=== PATIENT | male | born 2000 | race African-American/Black ===

== ENCOUNTER 2021-10-23 12:19 | Emergency (ER) | payer OTHER ==
[~2021-10-23] VITALS: Ht 175.3 cm; Wt 68.2 kg
[2021-10-23 12:34] VITALS: BP 133/75
[2021-10-23 13:28] VITALS: BP 133/75
== END 2021-10-23 14:14 | disposition home or self-care (01) | DRG 914 ==
LOC: ED 12:19
PROC: 3E1B78Z Irrigation of Ear using Irrigating Substance, Via Natural or Artificial Opening (ICD-10-PCS; principal; 2021-10-23)
DX: S09.90XA Unspecified injury of head, initial encounter (principal); M79.631 Pain in right forearm; H61.21 Impacted cerumen, right ear; V43.52XA Car driver injured in collision with other type car in traffic accident, initial encounter

== ENCOUNTER 2021-10-25 14:39 | Emergency (ER) | payer OTHER ==
[~2021-10-25] VITALS: Ht 175.3 cm; Wt 68.2 kg
[2021-10-25 15:15] VITALS: BP 133/85
[2021-10-25 15:30] VITALS: BP 118/72
[2021-10-25 16:07] LABS: HEMOGLOBIN 14.8 g/dl (14.0-18.0); IMMATURE GRANULOCYTES 0.2 % (0.0-5.0); MEAN CELL VOLUME 88.1 fL CALC (80.0-100.0); MEAN CORPUSCULAR HGB CONC 35.2 g/dL CAL (32.0-36.0); NEUT# 2.85 thou/uL (1.82-7.42); RED BLOOD COUNT 4.77 mill/uL (4.70-6.10); RED CELL DISTRI WIDTH 13.1 % (11.5-15.5)
[2021-10-25 16:22] LABS: ALBUMIN 4.6 g/dL (3.2-5.0); ALKALINE PHOSPHATASE 50 u/l (38-126); ANION GAP 11 (6-22 (CALC)); BILIRUBIN, TOTAL 0.9 mg/dL (0.0-1.4); BUN 11 mg/dL (9-20); BUN/CREATININE RATIO 14 (12-20 (CALC)); CHLORIDE 105 mmol/l (95-108); CREATININE 0.8 mg/dL (0.7-1.3); GFR FOR AFR.AMER. > 60 ML/MIN (>=60 (CALC)); GFR OTHER RACES > 60 ML/MIN (>=60 (CALC)); LIPASE 57 u/l (23-300); POTASSIUM 3.9 mmol/l (3.5-5.1); SGOT/AST 24 u/l (17-59); SODIUM 140 mmol/l (137-146); TOTAL PROTEIN 7.1 g/dL (6.3-8.2)
[2021-10-25 16:24] LABS: CARBON DIOXIDE 28 mmol/l (22-30)
[2021-10-25 17:05] VITALS: BP 118/72
== END 2021-10-25 17:11 | disposition home or self-care (01) | DRG 556 ==
LOC: ED 14:39
PROVIDERS: Family Medicine
DX: M62.838 Other muscle spasm (principal)

== ENCOUNTER 2022-01-03 11:14 | Emergency (ER) | payer OTHER ==
[~2022-01-03] VITALS: Ht 175.3 cm; Wt 68.1 kg
[2022-01-03 12:01] VITALS: BP 120/88
[2022-01-03 12:22] LABS: URINE BILIRUBIN - DIPSTICK NEGATIVE (NEGATIVE); URINE BLOOD DIPSTICK LARGE (NEGATIVE); URINE COLOR YELLOW; URINE GLUCOSE - DIPSTICK NEGATIVE (NEGATIVE); URINE KETONE NEGATIVE (NEGATIVE); URINE LEUK ESTERASE NEGATIVE (NEGATIVE); URINE PROTEIN - DIPSTICK NEGATIVE (NEG-TRACE); URINE SPECIFIC GRAVITY 1.025; URINE UROBILINOGEN - DIPSTICK 0.2 E.U./dL (0.2)
[2022-01-03 12:25] LABS: URINE NITRITE - DIPSTICK NEGATIVE (Negative)
[2022-01-03 13:11] VITALS: BP 120/88
== END 2022-01-03 13:21 | disposition home or self-care (01) | DRG 696 ==
LOC: ED 11:14
PROVIDERS: Nurse Practitioner
DX: R31.9 Hematuria, unspecified (principal)